=== PATIENT | female | born 2000 | race African-American/Black ===

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

== ENCOUNTER 2020-10-03 04:39 | Emergency (ER) | payer SELFPAY ==
[~2020-10-03] VITALS: Ht 162.6 cm; Wt 62.0 kg
[2020-10-03] MEDS ORDERED: IBUPROFEN 400MG TABLET PO ONE (05:45)
[2020-10-03 06:32] VITALS: BP 110/76
== END 2020-10-03 06:33 | disposition home or self-care (01) ==
LOC: ER 04:48
DX: S90.31XA Contusion of right foot, initial encounter (principal); V49.59XA Passenger injured in collision with other motor vehicles in traffic accident, initial encounter; Y93.89 Activity, other specified; Y92.488 Other paved roadways as the place of occurrence of the external cause
CPT/HCPCS: 73620; 99283

== ENCOUNTER 2022-10-04 10:06 | Inpatient (IN) | payer MEDICAID, OTHER ==
[~2022-10-04] VITALS: Ht 170.2 cm; Wt 74.8 kg
[2022-10-04] MEDS ORDERED: SODIUM CHLORIDE 0.9% 1,000 ML IV ONE (10:30)
[2022-10-04] MEDS ORDERED: ONDANSETRON HCL 4MG/2ML INJ IV ONE (10:30)
[2022-10-04 11:25] LABS: BASOPHILS % 0.5 % (0.0-2.0); EOSINOPHILS % 0.2 % (0.0-5.0); HEMATOCRIT. 35.2 % (36.0-48.0); HEMOGLOBIN. 11.6 g/dL (12.0-16.0); LYMPHOCYTES % 19.6 % (20.0-50.0); MEAN CORPUSCULAR HEMOGLOBIN 24.6 pg (28.0-32.0); MEAN PLATELET VOLUME 8.4 fl (7.4-10.4); MONOCYTES % 7.8 % (2.0-8.0); NEUTROPHILS % 71.9 % (40.0-76.0); PLATELET 394 x1000/uL (130-400); RED CELL DISTRIBUTION WIDTH 15.7 % (11.6-14.6)
[2022-10-04 11:33] LABS: CHLORIDE 100 mEq/L (98-107)
[2022-10-04 11:59] LABS: B-HCG QUANTITATIVE 32717 mIU/mL (<3)
[2022-10-04] MEDS ORDERED: POTASSIUM CHLORIDE INJ 40 MEQ in DEXT 5% WATER 500 ML IV ONE (12:30)
[2022-10-04 16:30] VITALS: BP 134/70
[2022-10-04] MEDS: SODIUM CHLORIDE 0.9% 1,000 ML IV SCH (17:44)
[2022-10-04 20:00] VITALS: BP 116/82
[2022-10-04] MEDS: ONDANSETRON HCL 4MG/2ML INJ IV PRN (23:43)
[2022-10-05] VITALS: BP 119/66
[2022-10-05 04:00] VITALS: BP 109/57
[2022-10-05] MEDS: ACETAMINOPHEN 325MG TABLET PO PRN (04:27)
[2022-10-05 06:24] LABS: CHLORIDE 102 mEq/L (98-107)
[2022-10-05 06:36] LABS: PHOSPHORUS 3.6 mg/dL (2.5-4.9)
[2022-10-05 06:51] LABS: BASOPHILS % 0.5 % (0.0-2.0); EOSINOPHILS % 1.8 % (0.0-5.0); HEMATOCRIT. 33.2 % (36.0-48.0); HEMOGLOBIN. 10.7 g/dL (12.0-16.0); LYMPHOCYTES % 24.6 % (20.0-50.0); MEAN CORPUSCULAR HEMOGLOBIN 24.4 pg (28.0-32.0); MEAN CORPUSCULAR VOLUME 75.9 fL (81.0-99.0); MEAN PLATELET VOLUME 8.2 fl (7.4-10.4); MONOCYTES % 10.8 % (2.0-8.0); NEUTROPHILS % 62.3 % (40.0-76.0); PLATELET 325 x1000/uL (130-400); RED BLOOD CELL COUNT 4.38 mill/uL (4.2-5.4); RED CELL DISTRIBUTION WIDTH 15.7 % (11.6-14.6)
[2022-10-05 08:00] VITALS: BP 117/65
[2022-10-05] MEDS: PANTOPRAZOLE SODIUM 40 MG/VIAL IV SCH (08:25)
[2022-10-05] MEDS: PRENATAL VIT/FE FUMARATE/FA TABLET PO SCH (08:25)
[2022-10-05] MEDS: ONDANSETRON HCL 4MG/2ML INJ IV PRN ×2 (08:26→20:19)
[2022-10-05] MEDS: SODIUM CHLORIDE 0.9% 1,000 ML IV SCH (08:31)
[2022-10-05 09:26] LABS: CLARITY URINE CLOUDY (CLEAR); COLOR URINE DARK YELLOW (YELLOW); KETONES URINE 1+ (NEGATIVE); LEUKOCYTE ESTERASE URINE 3+ (NEGATIVE); NITRITE URINE NEGATIVE (NEGATIVE); OCCULT BLOOD URINE NEGATIVE (NEGATIVE); PROTEIN URINE 1+ (NEGATIVE); SPECIFIC GRAVITY URINE 1.028 (1.005-1.030)
[2022-10-05] MEDS ORDERED: POTASSIUM CHLORIDE INJ 40 MEQ in DEXT 5% WATER 250 ML IV ONE (10:15)
[2022-10-05 10:48] LABS: *AMPHETAMINES SCREEN URINE NEGATIVE (NEGATIVE); *BARBITURATES SCREEN URINE NEGATIVE (NEGATIVE); *BENZODIAZEPINES SCREEN URINE NEGATIVE (NEGATIVE); *COCAINE SCREEN URINE NEGATIVE (NEGATIVE); METHADONE URINE SCREEN NEGATIVE (NEGATIVE); OPIATES URINE SCREEN NEGATIVE (NEGATIVE); PHENCYCLIDINE URINE SCREEN NEGATIVE (NEGATIVE)
[2022-10-05 11:50] LABS: CANNABINOID URINE SCREEN PRESUMTIVE POSITIVE (NEGATIVE)
[2022-10-05 12:00] VITALS: BP 105/57
[2022-10-05] MEDS: KCL 20MEQ/100ML X 2 FOR TOTAL KCL 40MEQ/200ML IV SCH ×2 (13:04→15:14)
[2022-10-05 16:00] VITALS: BP 109/58
[2022-10-05] MEDS ORDERED: POTASSIUM CHLORIDE 20MEQ/PACKET PO NR (16:24)
[2022-10-05] MEDS ORDERED: CEFTRIAXONE 1 G PREMIX 50 ML IV SCH (16:45)
[2022-10-05] MEDS ORDERED: CEFTRIAXONE 1,000 MG in DEXTROSE 5% WATER 50 ML IV SCH (18:00)
[2022-10-05 20:00] VITALS: BP 103/53
[2022-10-06] VITALS: BP 105/61
[2022-10-06] MEDS: SODIUM CHLORIDE 0.9% 1,000 ML IV SCH (02:25)
[2022-10-06 04:00] VITALS: BP 124/59
[2022-10-06] MEDS: ACETAMINOPHEN 325MG TABLET PO PRN (04:08)
[2022-10-06] MEDS: ONDANSETRON HCL 4MG/2ML INJ IV PRN (04:08)
[2022-10-06 08:00] VITALS: BP 107/55
[2022-10-06] MEDS: PRENATAL VIT/FE FUMARATE/FA TABLET PO SCH (08:56)
[2022-10-06] MEDS: PANTOPRAZOLE SODIUM 40 MG/VIAL IV SCH (08:56)
[2022-10-06 12:00] VITALS: BP 127/70
[2022-10-06] MEDS ORDERED: ONDA4TAB11 PO (16:43)
[2022-10-06] MEDS ORDERED: POTA-205 MT (16:43)
[2022-10-06] MEDS ORDERED: CEPH500C2 MT (16:46)
[2022-10-06 17:41] VITALS: BP 127/70
== END 2022-10-06 19:05 | disposition home or self-care (01) | DRG 566 ==
LOC: ER 10:06 → 8WST 13:41 → ENRESERV 14:23
PROVIDERS: ADMIT Internal Medicine; ATTEND Internal Medicine
DX: O99.611 Diseases of the digestive system complicating pregnancy, first trimester (principal); E87.6 Hypokalemia; Z20.822 Contact with and (suspected) exposure to COVID-19; O23.41 Unspecified infection of urinary tract in pregnancy, first trimester; K20.90 Esophagitis, unspecified without bleeding; Z3A.01 Less than 8 weeks gestation of pregnancy; O99.281 Endocrine, nutritional and metabolic diseases complicating pregnancy, first trimester; O99.341 Other mental disorders complicating pregnancy, first trimester; N39.0 Urinary tract infection, site not specified; F19.10 Other psychoactive substance abuse, uncomplicated; F32.9 Major depressive disorder, single episode, unspecified
CPT/HCPCS: 36415; 71045; 76801; 80048; 80053; 80305; 81003; 83735; 84100; 84484; 84702; 85025; 86850; 86900; 87077; 87186; 87426; 93005; 93970; 99291; C9113; J0696; J2405; J3480; J7030; J7060

== ENCOUNTER 2024-04-11 11:55 | Inpatient (IN) | payer MEDICAID ==
[~2024-04-11] VITALS: Ht 167.6 cm; Wt 67.6 kg
[~2024-04-11 11:55] MED LIST: METO10TA3 MT; ONDA4TAB11 PO; POTA-205 MT
[2024-04-11] MEDS: ONDANSETRON HCL 4MG/2ML INJ IV ONE (12:33)
[2024-04-11] MEDS: SODIUM CHLORIDE 0.9% 1,000 ML IV ONE (12:33)
[2024-04-11 12:51] LABS: BASOPHILS % 0.5 % (0.0-2.0); DIFFERENTIAL COMMENT 0; EOSINOPHILS % 0.4 % (0.0-5.0); HEMATOCRIT. 42.6 % (36.0-48.0); HEMOGLOBIN. 14.6 g/dL (12.0-16.0); LYMPHOCYTES % 21.5 % (20.0-50.0); MEAN CORPUSCULAR HGB CONC 34.3 g/dL (31.0-37.0); MEAN CORPUSCULAR VOLUME 78.7 fL (81.0-99.0); MEAN PLATELET VOLUME 8.6 fl (7.4-10.4); MONOCYTES % 7.8 % (2.0-8.0); NEUTROPHILS % 69.8 % (40.0-76.0); PLATELET 424 x1000/uL (130-400); RED BLOOD CELL COUNT 5.41 mill/uL (4.2-5.4); RED CELL DISTRIBUTION WIDTH 15.7 % (11.6-14.6); WHITE BLOOD COUNT 8.3 x1000/uL (4.5-11.0)
[2024-04-11 12:54] LABS: CHLORIDE 102 mEq/L (98-107); POTASSIUM 3.7 mEq/L (3.5-5.1); SODIUM 130 mEq/L (136-145)
[2024-04-11 12:55] LABS: CARBON DIOXIDE 13 mEq/L (21-32)
[2024-04-11 12:56] LABS: CALCIUM 11.1 mg/dL (8.7-10.4)
[2024-04-11 13:00] LABS: CREATININE 0.8 mg/dL (0.6-1.0); GLUCOSE 89 mg/dL (70-105); UREA NITROGEN BLOOD 6 mg/dL (9-23)
[2024-04-11 13:02] LABS: ALANINE AMINOTRANSFERASE 11 IU/L (10-49); ALBUMIN 4.8 g/dL (3.2-4.8); ASPARTATE AMINOTRANSFERASE 16 IU/L (<34)
[2024-04-11 13:03] LABS: BILIRUBIN TOTAL 0.6 mg/dL (0.1-1.0); PROTEIN TOTAL 8.5 g/dL (6.0-8.3)
[2024-04-11 14:18] LABS: B-HCG QUANTITATIVE 173197 mIU/mL (<3)
[2024-04-11] MEDS: DEXT 5%/LACTATED RINGERS 1,000 ML IV ONE (15:34)
[2024-04-11 16:46] LABS: CLARITY URINE CLOUDY (CLEAR); COLOR URINE YELLOW (YELLOW); GLUCOSE URINE NEGATIVE (NEGATIVE); KETONES URINE 4+ (NEGATIVE); LEUKOCYTE ESTERASE URINE 1+ (NEGATIVE); NITRITE URINE NEGATIVE (NEGATIVE); OCCULT BLOOD URINE NEGATIVE (NEGATIVE); PH URINE 5.5 (4.5-8.0); PROTEIN URINE 1+ (NEGATIVE); SPECIFIC GRAVITY URINE 1.031 (1.005-1.030)
[2024-04-11 17:28] LABS: BACTERIA URINE 3+; RBC URINE 0-2 /hpf (0-2); SQUAMOUS EPITHELIAL CELL URINE 2+ /lpf (RARE/1+)
[2024-04-11 18:11] LABS: CHLORIDE 107 mEq/L (98-107); POTASSIUM 3.4 mEq/L (3.5-5.1); SODIUM 133 mEq/L (136-145)
[2024-04-11 18:12] LABS: CALCIUM 9.6 mg/dL (8.7-10.4); CARBON DIOXIDE 17 mEq/L (21-32)
[2024-04-11 18:17] LABS: CREATININE 0.7 mg/dL (0.6-1.0); GLUCOSE 125 mg/dL (70-105); UREA NITROGEN BLOOD 6 mg/dL (9-23)
[2024-04-11 21:45] VITALS: BP 117/72; PULSE 89; RESP 10; TEMP 97.8
[2024-04-11 23:17] VITALS: BP 117/72; PULSE 89; RESP 10; TEMP 97.8
[2024-04-11] MEDS ORDERED: ACETAMINOPHEN 325MG TABLET PO PRN (23:30)
[2024-04-12 00:15] VITALS: BP 115/81; PULSE 99; RESP 16; TEMP 97
[2024-04-12] MEDS: DEXT 5%/LACTATED RINGERS 1,000 ML IV SCH (01:44)
[2024-04-12] MEDS: ONDANSETRON HCL 4MG/2ML INJ IV PRN (01:50)
[2024-04-12 04:15] VITALS: BP 109/76; PULSE 99; RESP 19; TEMP 97.6
[2024-04-12 07:10] LABS: BASOPHILS % 0.6 % (0.0-2.0); DIFFERENTIAL COMMENT 0; EOSINOPHILS % 1.1 % (0.0-5.0); HEMATOCRIT. 33.3 % (36.0-48.0); HEMOGLOBIN. 11.5 g/dL (12.0-16.0); LYMPHOCYTES % 29.6 % (20.0-50.0); MEAN CORPUSCULAR HEMOGLOBIN 26.5 pg (28.0-32.0); MEAN CORPUSCULAR HGB CONC 34.4 g/dL (31.0-37.0); MEAN PLATELET VOLUME 8.2 fl (7.4-10.4); NEUTROPHILS % 57.7 % (40.0-76.0); PLATELET 317 x1000/uL (130-400); RED BLOOD CELL COUNT 4.33 mill/uL (4.2-5.4); RED CELL DISTRIBUTION WIDTH 16.1 % (11.6-14.6); WHITE BLOOD COUNT 5.8 x1000/uL (4.5-11.0)
[2024-04-12 07:17] LABS: CHLORIDE 107 mEq/L (98-107); POTASSIUM 3.1 mEq/L (3.5-5.1); SODIUM 136 mEq/L (136-145)
[2024-04-12 07:18] LABS: CARBON DIOXIDE 20 mEq/L (21-32)
[2024-04-12 07:23] LABS: GLUCOSE 112 mg/dL (70-105)
[2024-04-12 07:25] LABS: ALANINE AMINOTRANSFERASE 8 IU/L (10-49); ALBUMIN 3.4 g/dL (3.2-4.8); ASPARTATE AMINOTRANSFERASE 12 IU/L (<34)
[2024-04-12 07:26] LABS: BILIRUBIN TOTAL 0.5 mg/dL (0.1-1.0); PROTEIN TOTAL 5.7 g/dL (6.0-8.3)
[2024-04-12 08:00] VITALS: BP 112/76; PULSE 85; RESP 16; TEMP 97
[2024-04-12 08:04] LABS: CREATININE 0.4 mg/dL (0.6-1.0); UREA NITROGEN BLOOD < 5 mg/dL (9-23)
[2024-04-12 09:53] LABS: BETA HYDROXYBUTYRATE 0.3 mMol/L (0.0-0.3)
[2024-04-12] MEDS ORDERED: NITROFURANTOIN MACROCRYSTAL 25MG CAPSULE PO SCH (10:00)
[2024-04-12 10:26] LABS: BG BASE EXCESS -2.5 mmol/L (-2.0-2.0); BG CARBOXYHEMOGLOBIN 0.3 % (0.5-1.5); BG DEOXYHEMOGLOBIN 2.5 % (0.0-5.0); BG FRACTION INSPIRED OXYGEN 21; BG HCO3 ACT 20.9 mmol/L (22.0-26.0); BG METHEMOGLOBIN 0.4 % (0.0-1.5); BG OXYGEN SATURATION 97.5 % (92.0-98.5); BG OXYHEMOGLOBIN 96.8 % (94.0-97.0); BG PCO2 31.3 mmHg (35.0-45.0); BG PH 7.442 (7.350-7.450); BG PO2 101.4 mmHg (75.0-100.0); BG SAMPLE SITE LEFT BRACHIAL; BG TOTAL HEMOGLOBIN 11.1 g/dL (12.0-18.0); BG VENT MODE ROOM AIR
[2024-04-12] MEDS: FOLIC ACID 1MG TABLET PO SCH (10:28)
[2024-04-12] MEDS: NITROFURANTOIN 100MG M/M CAPSULE PO SCH (10:28)
[2024-04-12] MEDS: POTASSIUM CHLORIDE 20MEQ TABLET SR PO NR (10:28)
[2024-04-12 11:36] LABS: IRON 58 ug/dL (50-170)
[2024-04-12 11:39] LABS: TOTAL IRON BINDING CAPACITY 267 ug/dl (250-425)
[2024-04-12 12:00] VITALS: BP 112/68; PULSE 99; RESP 15; TEMP 97.3
[2024-04-12] MEDS: MAGNESIUM 2 G PREMIX 50 ML IV NR (13:48)
[2024-04-12 16:00] VITALS: BP 120/73; PULSE 112; TEMP 97.6
[2024-04-12 16:45] LABS: FERRITIN 12 ng/mL (10-291); FOLIC ACID (FOLATE) SERUM > 20.00 ng/mL (>5.38); VITAMIN B12 SERUM 743 pg/mL (211-911)
[2024-04-12 20:10] VITALS: BP 121/82; PULSE 102; RESP 12; TEMP 97.4
[2024-04-12 21:55] LABS: CLARITY URINE CLEAR (CLEAR); COLOR URINE DARK YELLOW (YELLOW); GLUCOSE URINE 2+ (NEGATIVE); KETONES URINE 1+ (NEGATIVE); LEUKOCYTE ESTERASE URINE 2+ (NEGATIVE); NITRITE URINE NEGATIVE (NEGATIVE); OCCULT BLOOD URINE NEGATIVE (NEGATIVE); PROTEIN URINE NEGATIVE (NEGATIVE); SPECIFIC GRAVITY URINE 1.024 (1.005-1.030)
[2024-04-12 22:25] LABS: BACTERIA URINE 2+; RBC URINE 0-2 /hpf (0-2); SQUAMOUS EPITHELIAL CELL URINE 1+ /lpf (RARE/1+)
[2024-04-13 00:10] VITALS: BP 107/72; PULSE 100; RESP 21; TEMP 97.2
[2024-04-13 04:10] VITALS: BP 112/75; PULSE 78; RESP 15; TEMP 97
[2024-04-13 06:39] LABS: CARBON DIOXIDE 24 mEq/L (21-32); CHLORIDE 106 mEq/L (98-107); SODIUM 136 mEq/L (136-145)
[2024-04-13 06:40] LABS: CALCIUM 9.1 mg/dL (8.7-10.4)
[2024-04-13 06:41] LABS: BASOPHILS % 0.6 % (0.0-2.0); DIFFERENTIAL COMMENT 0; EOSINOPHILS % 1.1 % (0.0-5.0); HEMATOCRIT. 28.4 % (36.0-48.0); HEMOGLOBIN. 9.7 g/dL (12.0-16.0); LYMPHOCYTES % 31.3 % (20.0-50.0); MEAN CORPUSCULAR HEMOGLOBIN 26.3 pg (28.0-32.0); MEAN CORPUSCULAR HGB CONC 34.2 g/dL (31.0-37.0); MEAN CORPUSCULAR VOLUME 76.9 fL (81.0-99.0); MEAN PLATELET VOLUME 8.5 fl (7.4-10.4); MONOCYTES % 11.1 % (2.0-8.0); NEUTROPHILS % 55.9 % (40.0-76.0); PLATELET 252 x1000/uL (130-400); RED CELL DISTRIBUTION WIDTH 15.4 % (11.6-14.6)
[2024-04-13 06:45] LABS: CREATININE 0.6 mg/dL (0.6-1.0); GLUCOSE 98 mg/dL (70-105)
[2024-04-13 07:01] LABS: UREA NITROGEN BLOOD < 5 mg/dL (9-23)
[2024-04-13 07:03] LABS: POTASSIUM 2.8 mEq/L (3.5-5.1)
[2024-04-13] MEDS: POTASSIUM CHLORIDE 20MEQ/PACKET PO NR ×2 (07:47→11:29)
[2024-04-13 08:00] VITALS: BP 117/60; PULSE 89; RESP 15; TEMP 97.7
[2024-04-13] MEDS: SODIUM CHLORIDE 0.9% 1,000 ML IV SCH (11:22)
[2024-04-13 12:00] VITALS: BP 118/82; PULSE 105; RESP 19; TEMP 97.6
[2024-04-13 16:00] VITALS: BP 107/55; PULSE 101; RESP 18; TEMP 99
[2024-04-13 20:00] VITALS: BP 120/61; PULSE 83; RESP 18; TEMP 98.3
[2024-04-14] VITALS: BP 121/57; PULSE 97; RESP 20; TEMP 98
[2024-04-14 04:00] VITALS: BP 121/76; PULSE 75; RESP 20; TEMP 97.8
[2024-04-14 07:21] LABS: BASOPHILS % 0.5 % (0.0-2.0); DIFFERENTIAL COMMENT 0; EOSINOPHILS % 1.2 % (0.0-5.0); HEMATOCRIT. 28.1 % (36.0-48.0); HEMOGLOBIN. 9.5 g/dL (12.0-16.0); LYMPHOCYTES % 27.3 % (20.0-50.0); MEAN CORPUSCULAR HEMOGLOBIN 26.4 pg (28.0-32.0); MEAN CORPUSCULAR HGB CONC 33.9 g/dL (31.0-37.0); MEAN CORPUSCULAR VOLUME 77.7 fL (81.0-99.0); MEAN PLATELET VOLUME 8.5 fl (7.4-10.4); MONOCYTES % 9.4 % (2.0-8.0); NEUTROPHILS % 61.6 % (40.0-76.0); PLATELET 235 x1000/uL (130-400); RED BLOOD CELL COUNT 3.62 mill/uL (4.2-5.4); WHITE BLOOD COUNT 4.9 x1000/uL (4.5-11.0)
[2024-04-14 07:37] LABS: CARBON DIOXIDE 23 mEq/L (21-32); CHLORIDE 109 mEq/L (98-107); POTASSIUM 3.3 mEq/L (3.5-5.1); SODIUM 133 mEq/L (136-145)
[2024-04-14 07:42] LABS: CREATININE 0.5 mg/dL (0.6-1.0); GLUCOSE 90 mg/dL (70-105)
[2024-04-14 07:45] LABS: PHOSPHORUS 2.6 mg/dL (2.5-4.9)
[2024-04-14 08:00] VITALS: BP 117/60; PULSE 79; RESP 20; TEMP 97.9
[2024-04-14 09:31] LABS: UREA NITROGEN BLOOD < 5 mg/dL (9-23)
[2024-04-14] MEDS ORDERED: POTASSIUM CHLORIDE 20MEQ TABLET SR PO NR (10:00)
[2024-04-14 12:00] VITALS: BP 118/72; PULSE 84; RESP 20; TEMP 98.1
[2024-04-14] MEDS: MAGNESIUM 2 G PREMIX 50 ML IV NR (13:06)
[2024-04-14] MEDS: POTASSIUM CHLORIDE 20MEQ/PACKET PO NR (13:07)
[2024-04-14 16:00] VITALS: BP 115/69; PULSE 85; RESP 18; TEMP 97.7
[2024-04-14] MEDS: CEPHALEXIN 250MG CAPSULE PO SCH (18:31)
[2024-04-14 20:00] VITALS: BP 112/60; PULSE 87; RESP 16; TEMP 99.3
[2024-04-15] VITALS: BP 119/73; PULSE 72; RESP 19; TEMP 99
[2024-04-15 04:00] VITALS: BP 115/71; PULSE 72; RESP 18; TEMP 98.9
[2024-04-15 05:52] LABS: CARBON DIOXIDE 21 mEq/L (21-32); CHLORIDE 106 mEq/L (98-107); POTASSIUM 3.4 mEq/L (3.5-5.1); SODIUM 137 mEq/L (136-145)
[2024-04-15 05:53] LABS: CALCIUM 9.1 mg/dL (8.7-10.4)
[2024-04-15 05:57] LABS: CREATININE 0.6 mg/dL (0.6-1.0)
[2024-04-15 05:58] LABS: GLUCOSE 94 mg/dL (70-105)
[2024-04-15 06:00] LABS: UREA NITROGEN BLOOD < 5 mg/dL (9-23)
[2024-04-15 06:40] LABS: BASOPHILS % 0.4 % (0.0-2.0); DIFFERENTIAL COMMENT 0; EOSINOPHILS % 1.3 % (0.0-5.0); HEMATOCRIT. 28.7 % (36.0-48.0); HEMOGLOBIN. 9.5 g/dL (12.0-16.0); LYMPHOCYTES % 30.3 % (20.0-50.0); MEAN CORPUSCULAR HEMOGLOBIN 26.4 pg (28.0-32.0); MEAN CORPUSCULAR HGB CONC 33.2 g/dL (31.0-37.0); MEAN CORPUSCULAR VOLUME 79.3 fL (81.0-99.0); MEAN PLATELET VOLUME 8.9 fl (7.4-10.4); MONOCYTES % 9.8 % (2.0-8.0); NEUTROPHILS % 58.2 % (40.0-76.0); PLATELET 239 x1000/uL (130-400); RED BLOOD CELL COUNT 3.62 mill/uL (4.2-5.4); RED CELL DISTRIBUTION WIDTH 15.8 % (11.6-14.6); WHITE BLOOD COUNT 5.3 x1000/uL (4.5-11.0)
[2024-04-15 08:00] VITALS: BP 118/70; PULSE 86; RESP 26; TEMP 98.6
[2024-04-15] MEDS ORDERED: MAGN400T26 MT (09:41)
[2024-04-15] MEDS ORDERED: POTA-205 MT (09:41)
[2024-04-15] MEDS ORDERED: ONDA4TAB11 PO (09:41)
[2024-04-15] MEDS ORDERED: POTASSIUM CHLORIDE 20MEQ/PACKET PO NR (09:45)
[2024-04-15] MEDS ORDERED: MAGNESIUM 2 G PREMIX 50 ML IV NR (11:00)
[2024-04-15 11:09] VITALS: BP 118/70; PULSE 86; TEMP 98.6; O2SAT 100
[2024-04-15 12:00] VITALS: BP 120/75; PULSE 93; RESP 26; TEMP 98.2
== END 2024-04-15 15:12 | disposition home or self-care (01) | DRG 566 ==
LOC: ER 11:55 → 3WST 21:25
PROVIDERS: ADMIT Internal Medicine; ATTEND Internal Medicine
DX: O21.9 Vomiting of pregnancy, unspecified (principal); R57.1 Hypovolemic shock; E83.42 Hypomagnesemia; O99.281 Endocrine, nutritional and metabolic diseases complicating pregnancy, first trimester; Z3A.11 11 weeks gestation of pregnancy; E87.6 Hypokalemia; O99.011 Anemia complicating pregnancy, first trimester
CPT/HCPCS: 36415; 36600; 76801; 80048; 80053; 81003; 82010; 82375; 82607; 82728; 82746; 82805; 83540; 83550; 83605; 83735; 84100; 84702; 85025; 85044; 93005; 99285; J2405; J3475; J7030; J7121

== ENCOUNTER 2024-04-25 19:22 | Emergency (ER) | payer MEDICAID ==
[~2024-04-25] VITALS: Ht 172.7 cm; Wt 70.0 kg
[~2024-04-25 19:22] MED LIST changes: +MAGN400T26 MT; -METO10TA3 MT
[2024-04-25 19:25] VITALS: O2SAT 100
[2024-04-25] MEDS: ACETAMINOPHEN 500MG TABLET PO ONE (20:16)
[2024-04-25] MEDS: ONDANSETRON 4MG ODT PO ONE (20:16)
[2024-04-25 20:45] LABS: BASOPHILS % 0.4 % (0.0-2.0); DIFFERENTIAL COMMENT 0; EOSINOPHILS % 0.5 % (0.0-5.0); HEMATOCRIT. 36.7 % (36.0-48.0); HEMOGLOBIN. 12.4 g/dL (12.0-16.0); LYMPHOCYTES % 19.3 % (20.0-50.0); MEAN CORPUSCULAR HEMOGLOBIN 26.2 pg (28.0-32.0); MEAN CORPUSCULAR HGB CONC 33.7 g/dL (31.0-37.0); MEAN CORPUSCULAR VOLUME 77.9 fL (81.0-99.0); MEAN PLATELET VOLUME 7.7 fl (7.4-10.4); MONOCYTES % 8.7 % (2.0-8.0); NEUTROPHILS % 71.1 % (40.0-76.0); PLATELET 388 x1000/uL (130-400); RED BLOOD CELL COUNT 4.71 mill/uL (4.2-5.4); WHITE BLOOD COUNT 8.4 x1000/uL (4.5-11.0)
[2024-04-25] MEDS: SODIUM CHLORIDE 0.9% 1,000 ML IV ONE (20:46)
[2024-04-25 20:54] LABS: HCG SCREEN POSITIVE
[2024-04-25 20:58] LABS: CHLORIDE 103 mEq/L (98-107); POTASSIUM 3.6 mEq/L (3.5-5.1); SODIUM 132 mEq/L (136-145)
[2024-04-25 20:59] LABS: CALCIUM 9.7 mg/dL (8.7-10.4); CARBON DIOXIDE 21 mEq/L (21-32)
[2024-04-25] MEDS: ONDANSETRON HCL 4MG/2ML INJ IV ONE (20:59)
[2024-04-25 21:04] LABS: CREATININE 0.7 mg/dL (0.6-1.0); GLUCOSE 94 mg/dL (70-105); UREA NITROGEN BLOOD 5 mg/dL (9-23)
[2024-04-25 21:06] LABS: ALANINE AMINOTRANSFERASE 10 IU/L (10-49); ALBUMIN 4.4 g/dL (3.2-4.8); ASPARTATE AMINOTRANSFERASE 17 IU/L (<34); BILIRUBIN DIRECT 0.2 mg/dL (<=3.0); BILIRUBIN TOTAL 0.5 mg/dL (0.1-1.0); PROTEIN TOTAL 7.2 g/dL (6.0-8.3)
[2024-04-25 22:51] LABS: CLARITY URINE TURBID (CLEAR); COLOR URINE DARK YELLOW (YELLOW); GLUCOSE URINE NEGATIVE (NEGATIVE); KETONES URINE 4+ (NEGATIVE); LEUKOCYTE ESTERASE URINE 1+ (NEGATIVE); NITRITE URINE NEGATIVE (NEGATIVE); OCCULT BLOOD URINE TRACE (NEGATIVE); PH URINE 5.5 (4.5-8.0); PROTEIN URINE 2+ (NEGATIVE)
[2024-04-25 23:10] LABS: WBC URINE 25-50 /hpf (0-2)
[2024-04-25 23:11] LABS: BACTERIA URINE 1+; CALCIUM OXALATE CRYSTALS URINE 1+ /lpf; SQUAMOUS EPITHELIAL CELL URINE 3+ /lpf (RARE/1+)
[2024-04-25] MEDS ORDERED: CEPH500T MT (23:40)
[2024-04-26 00:37] VITALS: BP 119/69; PULSE 100; RESP 19; TEMP 98.8
== END 2024-04-26 00:45 | disposition home or self-care (01) ==
LOC: ER 19:22
DX: R11.2 Nausea with vomiting, unspecified (principal); F41.9 Anxiety disorder, unspecified; F31.9 Bipolar disorder, unspecified
CPT/HCPCS: 80076; 80048; 81003; 84703; 83690; 85025; 87086; 36415; 96361; 96374; 99283; Q0162; J2405; J7030; Z7610 ×2

== ENCOUNTER 2025-03-12 10:10 | Emergency (ER) | payer MEDICAID ==
[~2025-03-12] VITALS: Ht 170.2 cm; Wt 79.0 kg
[~2025-03-12 10:10] MED LIST changes: +CEPH500T MT; +ONDA-239 PO; -ONDA4TAB11 PO
[2025-03-12 10:18] VITALS: BP 123/67; PULSE 77; RESP 18; TEMP 36.9; O2SAT 100
== END 2025-03-12 12:33 | disposition home or self-care (01) ==
LOC: ER 10:10
DX: R07.89 Other chest pain (principal); I10 Essential (primary) hypertension; F31.9 Bipolar disorder, unspecified; F41.9 Anxiety disorder, unspecified
CPT/HCPCS: 71045; 93005; 99283